=== PATIENT | male | born 1970 | race Hispanic/Latino ===

== ENCOUNTER 2017-02-25 14:49 | Emergency (ER) | payer SELFPAY ==
[2017-02-25 15:00] VITALS: RESP 20
[2017-02-25] MEDS ORDERED: Oxymetazoline 0.05% Nasal Spray (30 ml) NS STA (15:22)
[2017-02-25] MEDS ORDERED: Oxymetazoline 0.05% Nasal Spray (30 ml) NS ONE (15:34)
--- NOTE | 2017-02-25 16:26 | C.PDOC ---
History Of Present Illness A 46 y/o male c/o epistaxis that began 30 min prior. Pt denies trauma to the nose, fever chest pain, headaches, or SOB. Pt reports no Hx of similar symptoms and h/o htn. Time Seen by Provider: 02/25/17 15:14 Chief Complaint (Nursing): ENT Problem History Per: Patient History/Exam Limitations: None Onset/Duration Of Symptoms: Mins Current Symptoms Are (Timing): Still Present Severity: Mild Past Medical History Reviewed: Historical Data, Nursing Documentation, Vital Signs Vital Signs: Last Vital Signs Temp Pulse 110 H 02/25/17 16:45 Resp 20 02/25/17 16:45 BP 157/86 H 02/25/17 16:45 Pulse Ox 95 02/25/17 16:45 Family History: States: Unknown Family Hx - Social History Hx Alcohol Use: No Hx Substance Use: No - Immunization History Hx Influenza Vaccination: No Review Of Systems Except As Marked, All Systems Reviewed And Found Negative. Constitutional: Negative for: Fever, Chills ENT: Positive for: Nose Discharge (epistaxis). Negative for: Other (Nose trauma ) Cardiovascular: Negative for: Chest Pain Neurological: Negative for: Headache Physical Exam - Physical Exam Appears: Well, Non-toxic, No Acute Distress Skin: Warm, Dry Head: Atraumatic, Normacephalic Eye(s): bilateral: Normal Inspection, EOMI Nose: Epistaxis (Left nare), No Deformity Oral Mucosa: Moist Throat: Normal, No Exudate Neck: Normal ROM, Supple Chest: Symmetrical Cardiovascular: Rhythm Regular, No Murmur Respiratory: Normal Breath Sounds, No Accessory Muscle Use, Other (Speaking full sentences) Neurological/Psych: Oriented x3, Normal Speech, Other (No focal deficit) ED Course And Treatment O2 Sat by Pulse Oximetry: 96 (RA) Pulse Ox Interpretation: Normal Progress Note: Impression: 46 y/o c/o nose epistaxis 30 min prior. Plans: Afrin 0.05%. Patient is resting comfortably, and is in no acute distress. Epistaxis resolved with pressure. No bleeding 1 hour afterwards. Pt notes he feels well. Discussed signs of concern including elevated HTN and insturcted strict follow up with PMD in 1-2 days for further evaluation. Case discussed with Dr Hernandez who evaluated vitals and agreed upon plan and treatment. Disposition - Disposition Referrals: Christian Fry MD [Staff Provider] - Disposition: HOME/ ROUTINE Disposition Time: 17:00 Condition: STABLE Additional Instructions: Follow up with your primary medical doctor or clinic in 2-5 days for further evaluation. Take medications as prescribed. Return to the emergency department at any time if symptoms persist or worsen. Instructions: Nosebleed (ED) - Clinical Impression Clinical Impression: Epistaxis - Scribe Statement The provider has reviewed the documentation as recorded by the Lunaibchris mcmanus All medical record entries made by the Tariq were at my direction and personally dictated by me. I have reviewed the chart and agree that the record accurately reflects my personal performance of the history, physical exam, medical decision making, and the department course for this patient. I have also personally directed, reviewed, and agree with the discharge instructions and disposition.
[2017-02-25 16:46] VITALS: BP 157/86; PULSE 110
[2017-02-25 18:38] VITALS: O2SAT 96
== END 2017-02-25 17:49 | disposition home or self-care (01) ==
LOC: C.ER 14:49
DX: R04.0 Epistaxis (principal)